=== PATIENT | male | born 1995 | race Caucasian/White ===

== ENCOUNTER 2019-06-29 17:30 | Inpatient (IN) ==
[2019-06-29] MEDS ORDERED: MoRPHine SULFATE 4 MG/ML 1 ML CARP\\VIAL IV STA (17:52)
[2019-06-29] MEDS ORDERED: ONDANSETRON INJ 2 MG/ML 2 ML VIAL IV STA (17:52)
[2019-06-29] MEDS ORDERED: SODIUM CHLORIDE 0.9% 1000ML 1,000 ML IV SCH ×2 (18:00→20:00)
[2019-06-29 18:46] LABS: iSTAT Hemoglobin 14.6 g/dl (14.0-18.0); iSTAT Ionized Calcium 1.19 mmol/l (1.12-1.32); iSTAT Potassium 3.3 mEq/L (3.3-5.0)
[2019-06-29 18:47] LABS: Basophils # (auto) 0.01 K/uL (0-0.2); Basophils % (auto) 0.1 %; Eosinophils # (auto) 0.01 K/uL (0-0.5); Eosinophils % (auto) 0.1 %; Hematocrit (blood only) 41.4 % (42-52); Hemoglobin 14.9 g/dL (14.0-18.0); Immature Granulocytes # (auto) 0.03 K/uL (0.00-0.02); Immature Granulocytes % (auto) 0.3 %; Lymphocytes # (auto) 0.52 K/uL (1.2-3.4); Lymphocytes % (auto) 4.6 %; Mean Corpuscular Hemoglobin 29.3 pg (25-34); Mean Corpuscular Volume 81.5 fL (80-100); Mean Platelet Volume 9.2 fL (7.4-10.4); Monocytes # (auto) 0.93 K/uL (0.11-0.59); Monocytes % (auto) 8.2 %; Neutrophils # (auto) 9.87 K/uL (1.4-6.5); Neutrophils % (auto) 86.7 %; Platelet Count 198 K/uL (130-400); RDW Coefficient of Variation 12.4 % (11.5-14.5); RDW Standard Deviation 37.3 fL (36.4-46.3); Red Blood Count 5.08 M/uL (4.7-6.1); White Blood Count 11.37 K/uL (4.8-10.8)
[2019-06-29 19:10] LABS: Albumin Level 4.2 gm/dl (3.4-5.0); BUN Creatinine Ratio 13.6 (10-20); Calcium 10.1 mg/dl (8.5-10.1); Creatinine Clr Calc Pharmacy 96.2 ml/min; Est GFR (African American) 101.6; Est GFR (Non-African American) 87.7; Potassium 3.4 mmol/L (3.5-5.1)
[2019-06-29 19:13] LABS: Bilirubin,Total 0.6 mg/dl (0.2-1); Globulin 4.3 gm/dl (2.5-4.0); Total Protein 8.5 gm/dl (6.4-8.2)
[2019-06-29] MEDS ORDERED: IOVERSOL 100ml IV PRN (19:33)
[2019-06-29] MEDS ORDERED: PIPERACILL/TAZOBAC CONSULT ACTIVE PRN (19:54)
[2019-06-29] MEDS ORDERED: MoRPHine SULFATE 2 MG/ML CARP IV STA (19:54)
[2019-06-29] MEDS ORDERED: PIPERACILLIN/TAZOBACTAM 4.5 GM/120 ML BAG IV ONE (19:54)
--- NOTE | 2019-06-29 19:59 | CT Scan Report ---
CT SCAN OF THE ABDOMEN AND PELVIS WITH IV CONTRAST CLINICAL HISTORY: Right lower quadrant abdominal pain. COMPARISON STUDY: No priors. TECHNIQUE: Following the IV administration of 97 cc of Optiray 320, CT scan of the abdomen and pelvi s is performed from the lung bases to the proximal femora. Images are reviewed in the axial, sagittal , and coronal planes. IV contrast was administered without complication. A dose lowering technique wa s utilized adhering to the principles of ALARA. CT DOSE: 356.29 mGycm FINDINGS: Lung bases: The heart is normal in size and without pericardial effusion. The lung bases are clear. Liver: The contrast-enhanced liver is normal in size, contour, and attenuation. There is no intrahepa tic biliary ductal dilatation. The hepatic veins and portal veins are patent. Gallbladder: Unremarkable. Spleen: Normal in size and attenuation. Pancreas: Unremarkable. Adrenal glands: Unremarkable. Kidneys: The contrast enhanced kidneys are normal in size and without hydronephrosis. The kidneys enh ance symmetrically. Abdominal vasculature: The abdominal aorta is normal in course and caliber. Bowel: There is no bowel obstruction. The appendix is distended and fluid-filled, measuring up to 1. 3 cm. The appendiceal wall is thickened and there is pericystic inflammation. The appearance is consi stent with acute appendicitis. This is best seen on image #[id number] where there is a calcified appendicoli th. No periappendiceal fluid collection is identified. Peritoneum: There is no intraperitoneal free air or abdominal ascites. Lymphadenopathy: None. Pelvic viscera: The bladder, prostate, and seminal vesicles are normal as imaged. There is trace free fluid in the pelvis. Skeletal structures: No lytic or blastic lesions are seen. IMPRESSION: 1. Findings are consistent with acute appendicitis. There is no evidence of abscess or perforation. 2. A small volume of free fluid in the cul-de-sac is nonspecific and likely on a reactive basis. Electronically signed by: Gamal Barbour M.D. 06/29/2019 7:58 PM
--- NOTE | 2019-06-29 20:01 | Emergency Department Note ---
History of Present Illness General Chief complaint: Abdominal Pain Stated complaint: ABD PAIN Time Seen by Provider: 06/29/19 17:45 History of Present Illness Maximum Pain Intensity: 6 This is an otherwise healthy 23-year-old male who presents to the emergency department via private vehicle with complaints of "right lower quadrant abdominal pain". The patient states that for the past few days he has been experiencing symptoms to consist of that of a head cold. He states that that pina s since resolved and then today he began with right lower quadrant abdominal pain. Initially was periumbilical and then moved to the right lower quadrant. It is worse with movement. He notes the pain is quite severe as a 7/10 at this time. He notes that his Fitbit has been reading his heart rate is been quite high up to 130s. Home Medications Home Medications Medication Instructions Recorded Confirmed Type RF-QG-cwdylu/FA-zeqmlc-dihnsno 2 cap PO UD PRN 06/29/19 06/29/19 History [Vicks DayQuil-NyQuil] atfqoul-ifbxgoxjfkckz-djiiiilv 1 - 2 tab PO Q6H PRN 06/29/19 06/29/19 History [Excedrin Migraine] oxymetazoline [Afrin 2 spray INTRANASAL Q12H PRN 06/29/19 06/29/19 History (oxymetazoline)] Allergies Allergy/AdvReac Type Severity Reaction Status Date / Time No Known Allergies Allergy Unverified 06/29/19 20:07 Past Med/Surg History Medical History No pertinent past medical history Surgical History No pertinent past surgical history Social History Feels Safe at Home: Yes Smoking Status: Never smoker Review of Systems A total of 10 systems reviewed and were otherwise negative Physical Exam Vital Signs Vital Signs - 24 hr 06/29/19 17:38 06/29/19 18:30 06/29/19 18:42 Temperature 37.1 C Temperature Source Oral Sepsis Recent Fever Within 48 Hours No Sepsis Action Taken by Nursing No Action Required Pulse Rate 149 H 127 H 124 H Pulse Rate from SpO2 Sensor 130 H 119 H Pulse Rhythm Regular Pulse Strength Normal Respiratory Rate 20 17 22 Respiratory Effort / Characteristics Non-Labored Spontaneous Respiratory Depth Normal Respiratory Pattern Regular Blood Pressure 130/70 144/81 H Blood Pressure Mean 90 102 Blood Pressure Position Sitting Pulse Oximetry 98 100 100 Oxygen Delivery Method Room Air 06/29/19 19:00 06/29/19 20:12 06/29/19 20:14 Temperature Temperature Source Sepsis Recent Fever Within 48 Hours Sepsis Action Taken by Nursing Pulse Rate 110 H 119 H 115 H Pulse Rate from SpO2 Sensor 112 H 118 H 116 H Pulse Rhythm Pulse Strength Respiratory Rate 20 17 22 Respiratory Effort / Characteristics Respiratory Depth Respiratory Pattern Blood Pressure 157/80 H 145/85 H Blood Pressure Mean 105 105 Blood Pressure Position Pulse Oximetry 100 99 98 Oxygen Delivery Method 06/29/19 20:30 06/29/19 21:00 06/29/19 21:01 Temperature Temperature Source Sepsis Recent Fever Within 48 Hours Sepsis Action Taken by Nursing Pulse Rate 113 H 112 H 112 H Pulse Rate from SpO2 Sensor 115 H 111 H 111 H Pulse Rhythm Pulse Strength Respiratory Rate 18 16 17 Respiratory Effort / Characteristics Respiratory Depth Respiratory Pattern Blood Pressure 137/82 138/82 Blood Pressure Mean 100 100 Blood Pressure Position Pulse Oximetry 100 99 99 Oxygen Delivery Method VITAL SIGNS - Vital signs and nursing notes were reviewed. Stable and afebrile. GENERAL -23-year-old male appearing his stated age who is in no acute distress but appears to be in pain and is guarding the right lower quadrant abdomen. Communicates well with provider and answers questions appropriately. SKIN - Without rashes. No meningeal or petechial rash. HEAD - NC/AT. EYES - Sclera anicteric. EARS - No deformities of external structures noted on gross examination bilaterally. NOSE - Midline and without cyanosis. No epistaxis or purulent drainage noted. MOUTH/OROPHARYNX - Without perioral cyanosis. NECK - Neck with FROM.No nuchal rigidity. LUNGS - Chest wall symmetric without accessory muscle use, intercostals retractions, or central cyanosis. Normal vesicular breath sounds CTA B/L. No wheezes, rales, or rhonchi appreciated. CARDIAC - RRR with S1/S2. No murmur, rubs, or gallops appreciated. ABDOMEN - Abdominal contour normal without pulsations or visible masses. BS normoactive all four quadrants. Exquisite right lower quadrant abdominal tenderness with guarding and rebound tenderness noted. EXTREMITIES - No clubbing or peripheral cyanosis. No pretibial edema present. +5/5 strength noted in UE/LE bilaterally. NEUROLOGIC - Cranial nerves II through XII grossly intact. Sensory intact to light touch throughout. PSYCH - A&O, and cooperates fully with examiner. Pt is very pleasant and interacts well with examiner. Course Administered Medications Ioversol (Optiray 320 100ml) 97 ml IV ONCE PRN PRN Reason: Interaction Checking Stop: 07/03/19 19:32 Last Admin: 06/29/19 19:33 Dose: 97 ml Documented by: [id number] Discontinued Medications Sodium Chloride (Nss 1000ml) 1,000 mls @ 999 mls/hr IV .Q1H1M JUSTA Stop: 06/29/19 19:00 Last Infusion: 06/29/19 19:51 Dose: 0 mls/hr Documented by: [id number] Admin: 06/29/19 18:37 Dose: 999 mls/hr Documented by: [id number] Sodium Chloride (Nss 1000ml) 1,000 mls @ 999 mls/hr IV .Q1H1M JUSTA Stop: 06/29/19 21:00 Last Infusion: 06/29/19 21:17 Dose: 0 mls/hr Documented by: [id number] Admin: 06/29/19 20:08 Dose: 999 mls/hr Documented by: [id number] Piperacillin Sod/Tazobactam Sod (Zosyn) 4.5 gm in 120 mls @ 240 mls/hr IV NOW ONE Stop: 06/29/19 20:23 Last Infusion: 06/29/19 20:38 Dose: 0 mls/hr Documented by: [id number] Admin: 06/29/19 20:07 Dose: 240 mls/hr Documented by: [id number] Morphine Sulfate (Morphine Sulfate) 4 mg IV NOW STA Stop: 06/29/19 17:53 Last Admin: 06/29/19 18:36 Dose: 4 mg Documented by: [id number] Morphine Sulfate (Morphine Sulfate) 2 mg IV NOW STA Stop: 06/29/19 19:55 Last Admin: 06/29/19 20:07 Dose: 2 mg Documented by: [id number] Ondansetron HCl (Zofran) 4 mg IV NOW STA Stop: 06/29/19 17:53 Last Admin: 06/29/19 18:37 Dose: 4 mg Documented by: [id number] Medical Decision Making Laboratory Data Result diagrams: 06/29/19 18:28 06/29/19 18:28 Lab Results 06/29/19 06/29/19 06/29/19 Range/Units 18:28 18:28 18:34 WBC 11.37 H (4.8-10.8) K/uL RBC 5.08 (4.7-6.1) M/uL Hgb 14.9 (14.0-18.0) g/dL POC Hgb 14.6 (14.0-18.0) g/dl Hct 41.4 L (42-52) % POC Hct 43 (42-52) % MCV 81.5 (80-100) fL MCH 29.3 (25-34) pg MCHC 36.0 (32-36) g/dL RDW Std Deviation 37.3 (36.4-46.3) fL RDW Coeff of Deep 12.4 (11.5-14.5) % Plt Count 198 (130-400) K/uL MPV 9.2 (7.4-10.4) fL Immature Gran % (Auto) 0.3 % Neut % (Auto) 86.7 % Lymph % (Auto) 4.6 % [place] % (Auto) 8.2 % Eos % (Auto) 0.1 % Baso % (Auto) 0.1 % Immature Gran # (Auto) 0.03 H (0.00-0.02) K/uL Neut # (Auto) 9.87 H (1.4-6.5) K/uL Lymph # (Auto) 0.52 L (1.2-3.4) K/uL [place] # (Auto) 0.93 H (0.11-0.59) K/uL Eos # (Auto) 0.01 (0-0.5) K/uL Baso # (Auto) 0.01 (0-0.2) K/uL POC Sodium 138 (135-144) mEq/L Sodium 136 (136-145) mmol/L POC Potassium 3.3 (3.3-5.0) mEq/L Potassium 3.4 L (3.5-5.1) mmol/L POC Chloride 104 (101-112) mEq/L Chloride 106 (98-107) mmol/L Carbon Dioxide 24 (21-32) mmol/L POC Total CO2 21 L (24-31) mEq/l Anion Gap 6.0 (3-11) POC Anion Gap 18.0 (16-25) mmol/L POC BUN 16 (7-18) mg/dl BUN 16 (7-18) mg/dl Creatinine 1.18 (0.6-1.4) mg/dl POC Creatinine 1.0 (0.6-1.3) mg/dl Est Cr Clr Drug Dosing 96.2 ml/min Est GFR ( Amer) 101.6 Est GFR (Non-Af Amer) 87.7 BUN/Creatinine Ratio 13.6 (10-20) Glucose 115 H (70-99) mg/dl POC Glucose (other) 116 H (70-99) mg/dl Calcium 10.1 (8.5-10.1) mg/dl POC Ioniz Calcium [place] 1.19 (1.12-1.32) mmol/l Total Bilirubin 0.6 (0.2-1) mg/dl AST 14 L (15-37) U/L ALT 32 (12-78) U/L Alkaline Phosphatase 63 (45-117) U/L Total Protein 8.5 H (6.4-8.2) gm/dl Albumin 4.2 (3.4-5.0) gm/dl Globulin 4.3 H (2.5-4.0) gm/dl Albumin/Globulin Ratio 1.0 (0.9-2) Lipase 90 (73-393) U/L Urine Color Urine Appearance (Clear) Urine pH (4.5-7.5) Ur Specific [place] (1.000-1.030) Urine Protein (Negative) Urine Glucose (UA) (Negative) Urine Ketones (Negative) Urine Blood (Negative) Urine Nitrite (Negative) Urine Bilirubin (Negative) Urine Urobilinogen (Negative) Ur Leukocyte Esterase (Negative) 06/29/19 Range/Units 19:50 WBC (4.8-10.8) K/uL RBC (4.7-6.1) M/uL Hgb (14.0-18.0) g/dL POC Hgb (14.0-18.0) g/dl Hct (42-52) % POC Hct (42-52) % MCV (80-100) fL MCH (25-34) pg MCHC (32-36) g/dL RDW Std Deviation (36.4-46.3) fL RDW Coeff of Deep (11.5-14.5) % Plt Count (130-400) K/uL MPV (7.4-10.4) fL Immature Gran % (Auto) % Neut % (Auto) % Lymph % (Auto) % [place] % (Auto) % Eos % (Auto) % Baso % (Auto) % Immature Gran # (Auto) (0.00-0.02) K/uL Neut # (Auto) (1.4-6.5) K/uL Lymph # (Auto) (1.2-3.4) K/uL [place] # (Auto) (0.11-0.59) K/uL Eos # (Auto) (0-0.5) K/uL Baso # (Auto) (0-0.2) K/uL POC Sodium (135-144) mEq/L Sodium (136-145) mmol/L POC Potassium (3.3-5.0) mEq/L Potassium (3.5-5.1) mmol/L POC Chloride (101-112) mEq/L Chloride (98-107) mmol/L Carbon Dioxide (21-32) mmol/L POC Total CO2 (24-31) mEq/l Anion Gap (3-11) POC Anion Gap (16-25) mmol/L POC BUN (7-18) mg/dl BUN (7-18) mg/dl Creatinine (0.6-1.4) mg/dl POC Creatinine (0.6-1.3) mg/dl Est Cr Clr Drug Dosing ml/min Est GFR ( Amer) Est GFR (Non-Af Amer) BUN/Creatinine Ratio (10-20) Glucose (70-99) mg/dl POC Glucose (other) (70-99) mg/dl Calcium (8.5-10.1) mg/dl POC Ioniz Calcium [place] (1.12-1.32) mmol/l Total Bilirubin (0.2-1) mg/dl AST (15-37) U/L ALT (12-78) U/L Alkaline Phosphatase (45-117) U/L Total Protein (6.4-8.2) gm/dl Albumin (3.4-5.0) gm/dl Globulin (2.5-4.0) gm/dl Albumin/Globulin Ratio (0.9-2) Lipase (73-393) U/L Urine Color Yellow Urine Appearance Clear (Clear) Urine pH >= 9.0 H (4.5-7.5) Ur Specific [place] 1.016 (1.000-1.030) Urine Protein Negative (Negative) Urine Glucose (UA) Negative (Negative) Urine Ketones Trace H (Negative) Urine Blood Negative (Negative) Urine Nitrite Negative (Negative) Urine Bilirubin Negative (Negative) Urine Urobilinogen Negative (Negative) Ur Leukocyte Esterase Negative (Negative) Imaging Data Radiologist's Impression: CT SCAN OF THE ABDOMEN AND PELVIS WITH IV CONTRAST CLINICAL HISTORY: Right lower quadrant abdominal pain. COMPARISON STUDY: No priors. TECHNIQUE: Following the IV administration of 97 cc of Optiray 320, CT scan of the abdomen and pelvis is performed from the lung bases to the proximal femora. Images are reviewed in the axial, sagittal, and coronal planes. IV contrast was administered without complication. A dose lowering technique was utilized adh ering to the principles of ALARA. CT DOSE: 356.29 mGycm FINDINGS: Lung bases: The heart is normal in size and without pericardial effusion. The lung bases are clear. Liver: The contrast-enhanced liver is normal in size, contour, and attenuation. There is no intrahepatic biliary ductal dilatation. The hepatic veins and portal veins are patent. Gallbladder: Unremarkable. Spleen: Normal in size and attenuation. Pancreas: Unremarkable. Adrenal glands: Unremarkable. Kidneys: The contrast enhanced kidneys are normal in size and without hydronephrosis. The kidneys enhance symmetrically. Abdominal vasculature: The abdominal aorta is normal in course and caliber. Bowel: There is no bowel obstruction. The appendix is distended and fluid- filled, measuring up to 1.3 cm. The appendiceal wall is thickened and there is pericystic inflammation. The appearance is consistent with acute appendicitis. This is best seen on image #[id number] where there is a calcified appendicolith. No periappendiceal fluid collection is identified. Peritoneum: There is no intraperitoneal free air or abdominal ascites. Lymphadenopathy: None. Pelvic viscera: The bladder, prostate, and seminal vesicles are normal as imaged. There is trace free fluid in the pelvis. Skeletal structures: No lytic or blastic lesions are seen. IMPRESSION: 1. Findings are consistent with acute appendicitis. There is no evidence of abscess or perforation. 2. A small volume of free fluid in the cul-de-sac is nonspecific and likely on a reactive basis. Electronically signed by: Gamal Barbour M.D. 06/29/2019 7:58 PM MDM Narrative Patient was seen and evaluated as above in room a 12. Review was performed of nursing notes and vital signs. After obtaining a thorough history and physical examination the above work up was performed. He presents to us today with right lower quadrant abdominal pain. His presentation is concerning for that of appendicitis. Labs were obtained. Results as above. There is minimal leukocytosis. No anemia. No emergent metabolic abnormality. Urinalysis reveals no evidence of infection. Fluids were ordered. Pain meds and antinausea meds also ordered. CT scan results as above. Acute appendicitis noted. Dr. Yang the general surgeon came to bedside. He will be taken to the operative suite for further evaluation and management. Please refer to further documentation regarding his stay. Dr. Yang recommended IV Zosyn. Per patient r agustin I did speak with his parents about the findings via phone and at bedside. In the evaluation and treatment of this patient, the following differential diagnoses were considered: ASC, VA, Pneumonia, GERD, Cholecystitis, Ascending Cholangitis, Cholydocholithiasis, acute appendicitis, bowel Obstruction, PE, Amongst Others. Impression & Plan Acute appendicitis Discharge Plan Visit Data *Final* Discharge Date/Time: 06/29/19 21:29 Chief Complaint: Abdominal Pain Stated Complaint: ABD PAIN ED Provider: Campbell Bolanos ED Midlevel Provider: Fermin Hussein Discharge Problem: Acute appendicitis Patient Disposition: Still a Patient Condition: Good Discharge Instructions Interventions: ED Discharge Assessment Last Done: 06/29/19 21:29
[2019-06-29 20:10] LABS: Appearance Urine Clear (Clear); Bilirubin Urine Negative (Negative); Blood Urine Negative (Negative); Color Urine Yellow; Glucose Urine UA Negative (Negative); Ketones Urine Trace (Negative); Leukocyte Esterase Urine Negative (Negative); Nitrite Urine Negative (Negative); Protein Urine Negative (Negative); Specific Gravity Urine 1.016 (1.000-1.030); Urobilinogen Urine Negative (Negative); pH Urine >= 9.0 (4.5-7.5)
--- NOTE | 2019-06-29 21:27 | History & Physical Report ---
Date of Service June 29, 2019 Assessment & Plan (1) Acute appendicitis: for laparoscopic appendectomy, possible open operation IV atbx History of Present Illness Primary Care Provider: NO PCP pt with acute appendicitis on CT scan RLQ pain Allergies Allergy/AdvReac Type Severity Reaction Status Date / Time No Known Allergies Allergy Unverified 06/29/19 20:07 Home Medications Home Medications Medication Instructions Recorded Confirmed Type ER-TO-rtnduz/HW-yxpsaz-vhrxnax 2 cap PO UD PRN 06/29/19 06/29/19 History [Vicks DayQuil-NyQuil] ganbdro-udvnznoiyrjgk-czkijykj 1 - 2 tab PO Q6H PRN 06/29/19 06/29/19 History [Excedrin Migraine] oxymetazoline [Afrin 2 spray INTRANASAL Q12H PRN 06/29/19 06/29/19 History (oxymetazoline)] Past Med/Surg History Social History Feels Safe at Home: Yes Smoking Status: Never smoker Review of Systems All systems reviewed & are unremarkable except as noted in HPI & below Physical Exam Physical Exam: no distress- abd soft- RLQ pain Constitutional: well developed and well nourished; no acute distress Eyes: + anicteric sclerae Respiratory: normal respiratory effort; no respiratory distress Cardiovascular: Rate/Rhythm: regular rate Gastrointestinal (Abdomen): Percussion/Palpation: abdomen soft Skin: no rashes, warm and dry Neurologic: awake Psychiatric: Orientation: alert Results & Data Vital Signs (Past 12 Hours) Vital Signs Temp Pulse Resp BP Pulse Ox 06/29/19 20:14 115 H 22 98 06/29/19 20:12 119 H 17 145/85 H 99 06/29/19 19:00 110 H 20 157/80 H 100 06/29/19 18:42 124 H 22 100 06/29/19 18:30 127 H 17 144/81 H 100 06/29/19 17:38 37.1 C 149 H 20 130/[address] scan
[2019-06-29] MEDS ORDERED: PROPOFOL IV EMULSION 10 MG/ML 20 ML VIAL IV ONE (21:57)
[2019-06-29] MEDS ORDERED: LIDOCAINE HCL 2% 2 ML VIAL/AMP(20MG/ML) INFIL ONE (21:58)
[2019-06-29] MEDS ORDERED: ROCURONIUM BROMIDE 10 MG/ML 5 ML VIAL ONE (21:58)
[2019-06-29] MEDS ORDERED: SUCCINYLCHOLINE CHLORIDE 20 MG/ML 10 ML VIAL ONE (21:58)
[2019-06-29] MEDS ORDERED: fentaNYL citrate 100 MCG/2 ML VIAL ONE ×2 (21:59→22:42)
[2019-06-29] MEDS ORDERED: MIDAZOLAM HCL 1 MG/ML 2ML VIAL ONE (22:00)
[2019-06-29] MEDS ORDERED: BUPIVACAINE 0.5 % 5 MG/1 ML MPF 30ML VIAL ONE (22:01)
--- NOTE | 2019-06-29 23:17 | Anesthesiology Consultation ---
Date of Service June 29, 2019 Assessment & Plan (1) Encounter for pre-operative examination: Chart Review Chart Review: Acceptable Risk for Surgery and Patient NOT seen in Pre Admission Testing Consults Requested none History Surgery Operation Date: 06/29/19 22:00 Proposed Procedures p Laparoscopic Appendectomy - Chidi Yang MD, FACS Height/Weight Height: 6 ft Weight: 68.7 kg Allergies Allergy/AdvReac Type Severity Reaction Status Date / Time No Known Allergies Allergy Unverified 06/29/19 20:07 Medications Home Medications Medication Instructions Recorded Confirmed Last Taken KG-UM-yjnmav/HV-enhtsu-njggtmc 2 cap PO UD PRN 06/29/19 06/29/19 Unknown [Vicks DayQuil-NyQuil] vwnixau-dgqafwmjibzbe-vorfvlzp 1 - 2 tab PO Q6H PRN 06/29/19 06/29/19 06/29/19 08:45 [Excedrin Migraine] oxymetazoline [Afrin 2 spray INTRANASAL Q12H PRN 06/29/19 06/29/19 06/28/19 (oxymetazoline)] Active Medications Generic Name Dose Route Start Last Admin Trade Name Freq PRN Reason Stop Dose Admin Ioversol 97 ml 06/29/19 19:33 06/29/19 19:33 Optiray 320 100ml IV 07/03/19 19:32 97 ml ONCE PRN Administration Interaction Checking NPO Date Last Intake of Fluids: 06/29/19 Time Last Intake of Fluids: 17:30 Last Intake of Fluids Comment: few sips of gatorade Date Last Intake of Solids: 06/29/19 Time Last Intake of Solids: 13:30 Last Intake of Solids Comment: cheese sandwich Past Medical History Medical History No pertinent past medical history Past Surgical History Surgical History No pertinent past surgical history Social History Smoking Status: Never smoker Physical Exam Vital Signs Last Vital Signs Temp 37.1 C 06/29/19 17:38 Pulse 112 H 06/29/19 21:01 Resp 17 06/29/19 21:01 BP 138/82 06/29/19 21:01 Pulse Ox 99 06/29/19 21:01 Testing Laboratory Results 06/29/19 18:28 06/29/19 18:28 Urine Color Yellow 06/29/19 19:50 Urine Appearance Clear (Clear) 06/29/19 19:50 Urine pH >= 9.0 (4.5-7.5) H 06/29/19 19:50 Ur Specific [place] 1.016 (1.000-1.030) 06/29/19 19:50 Urine Protein Negative (Negative) 06/29/19 19:50 Urine Glucose (UA) Negative (Negative) 06/29/19 19:50 Urine Ketones Trace (Negative) H 06/29/19 19:50 Urine Nitrite Negative (Negative) 06/29/19 19:50 Ur Leukocyte Esterase Negative (Negative) 06/29/19 19:50 06/29/19 18:34 POC Glucose (other) 116 H
[2019-06-29] MEDS ORDERED: ePHEDrine sulfate 50 MG/ML AMP IV PRN (23:19)
[2019-06-29] MEDS ORDERED: ATROPINE SULFATE 0.1 MG/ML 10ML SYR IV PRN (23:19)
[2019-06-29] MEDS ORDERED: GLYCOPYRROLATE 0.2 MG/ML VIAL ONE (23:19)
[2019-06-29] MEDS ORDERED: NEOSTIGMINE METHYLSULFATE 5 MG/5 ML SYR ONE (23:20)
--- NOTE | 2019-06-29 23:34 | Operative Report ---
Post Operative Report Pre & Post Diagnosis Operation Date: 06/29/19 22:00 Pre-Op Diagnosis: Acute appendicitis Post-Op Diagnosis: Acute appendicitis chronic adhesions, appendolith Procedure Operation Date: 06/29/19 22:00 Actual Procedures p Laparoscopic Appendectomy(Not Applicable) - Chidi Yang MD, FACS Surgeon Chidi Yang MD, FACS [employer] nurses Estimated Blood Loss 10 Findings Consistent with Post-Op Diagnosis Specimens appendix Description of Procedure see dictation I attest to the content of the Intraoperative Record and any orders documented therein. Any exceptions are noted below.
[2019-06-29] MEDS ORDERED: ACETAMINOPHEN 1,000 MG/100 ML VIAL IV ONE (23:44)
[2019-06-30] MEDS ORDERED: HYDROmorphone INJ 0.5 MG/0.5 ML SYR ONE (00:10)
[2019-06-30] MEDS: HYDROmorphone INJ 2 MG/ML SYR/VIAL IV PRN ×2 (00:11→00:16)
[2019-06-30] MEDS ORDERED: ACETAMINOPHEN 1000 MG/100 ML IV IV ONE (00:21)
--- NOTE | 2019-06-30 00:31 | Anesthesiology Progress Note ---
Date of Service June 30, 2019 Anesthesia Post Procedure Vital Signs Vital Signs: Temp Pulse Pulse Resp BP BP Pulse Ox 06/30/19 00:25 37.1 C 88 16 147/82 H 98 06/30/19 00:15 81 16 139/79 97 06/30/19 00:05 91 H 19 166/71 H 96 06/29/19 23:55 89 21 148/79 H 95 06/29/19 23:46 37.2 C 99 H 23 146/82 H 95 06/29/19 21:01 112 H 17 138/82 99 06/29/19 21:00 112 H 16 99 06/29/19 20:30 113 H 18 137/82 100 06/29/19 20:14 115 H 22 98 06/29/19 20:12 119 H 17 145/85 H 99 06/29/19 19:00 110 H 20 157/80 H 100 06/29/19 18:42 124 H 22 100 06/29/19 18:30 127 H 17 144/81 H 100 06/29/19 17:38 37.1 C 149 H 20 130/70 98 Pain Intensity Right Abdomen: Pain Intensity: 3 Lower Medial Abdomen: Pain Intensity: 2 Transfer of Care Handoff Completed per policy Notes Mental Status: alert / awake / arousable Patient Amnestic to Procedure: Yes Nausea / Vomiting: adequately controlled Pain: adequately controlled Airway Patency, RR, SpO2: stable & adequate BP & HR: stable & adequate Hydration State: stable & adequate Anesthetic Complications: no major complications apparent
[2019-06-30] MEDS ORDERED: IBUPROFEN 600 MG TAB PO PRN (01:02)
[2019-06-30] MEDS ORDERED: PROMETHAZINE HCL 12.5 MG in SODIUM CHLORIDE 0.9% 50 ML IV PRN (01:02)
[2019-06-30] MEDS ORDERED: SODIUM CHLORIDE 0.9% 1000ML 1,000 ML IV SCH (01:02)
[2019-06-30] MEDS ORDERED: PROMETHAZINE HCL 25 MG in SODIUM CHLORIDE 0.9% 50 ML IV PRN (01:02)
[2019-06-30] MEDS ORDERED: PIPERACILL/TAZOBAC CONSULT ACTIVE PRN (01:02)
[2019-06-30] MEDS ORDERED: ONDANSETRON INJ 2 MG/ML 2 ML VIAL IV PRN (01:02)
[2019-06-30] MEDS ORDERED: MoRPHine SULFATE 2 MG/ML CARP IV PRN ×2 (01:02)
[2019-06-30] MEDS: PIPERACILLIN/TAZOBACTAM 3.375 GM in DEXTROSE 5% 100 ML IV SCH ×3 (01:28→18:06)
[2019-06-30] MEDS ORDERED: SODIUM CHLORIDE 0.9% 1000ML 500 ML IV ONE (05:50)
--- NOTE | 2019-06-30 06:06 | Surgery Progress Note ---
Date of Service June 30, 2019 Assessment & Plan (1) Acute appendicitis: pt is awake , alert- vitals stable ur output 200- dark, was very tachy on admission will give Nss bolus and increase IV abd- soft, incisions intact cont current care Results & Data Vital Signs (Past 12 Hours) Vital Signs Temp Pulse Pulse Pulse Resp BP BP 06/30/19 03:45 36.6 C 90 15 119/56 L 06/30/19 01:48 36.7 C 100 H 16 123/55 L 06/30/19 01:15 36.9 C 99 H 16 127/61 06/30/19 00:45 37.2 C 95 H 16 134/57 L 06/30/19 00:35 37.1 C 88 16 138/80 06/30/19 00:25 37.1 C 88 16 147/82 H 06/30/19 00:15 81 16 139/79 06/30/19 00:05 91 H 19 166/71 H 06/29/19 23:55 89 21 148/79 H 06/29/19 23:46 37.2 C 99 H 23 146/82 H 06/29/19 21:01 112 H 17 138/82 06/29/19 21:00 112 H 16 06/29/19 20:30 113 H 18 137/82 06/29/19 20:14 115 H 22 06/29/19 20:12 119 H 17 145/85 H 06/29/19 19:00 110 H 20 157/80 H 06/29/19 18:42 124 H 22 06/29/19 18:30 127 H 17 144/81 H Pulse Ox 06/30/19 03:45 96 06/30/19 01:48 94 06/30/19 01:15 95 06/30/19 00:45 95 06/30/19 00:35 98 06/30/19 00:25 98 06/30/19 00:15 97 06/30/19 00:05 96 06/29/19 23:55 95 06/29/19 23:46 95 06/29/19 21:01 99 06/29/19 21:00 99 06/29/19 20:30 100 06/29/19 20:14 98 06/29/19 20:12 99 06/29/19 19:00 100 06/29/19 18:42 100 06/29/19 18:30 100 PG Care Time/CCT Total # of Minutes Spent Total Time Spent with Patient: Total time spent is greater than 50% in coordination of care (as documented) at patient's floor/unit and/or counseling patient:
[2019-06-30 06:17] LABS: Basophils # (auto) 0.01 K/uL (0-0.2); Basophils % (auto) 0.1 %; Eosinophils % (auto) 1.1 %; Hematocrit (blood only) 35.8 % (42-52); Hemoglobin 12.3 g/dL (14.0-18.0); Immature Granulocytes # (auto) 0.02 K/uL (0.00-0.02); Immature Granulocytes % (auto) 0.2 %; Lymphocytes # (auto) 1.35 K/uL (1.2-3.4); Lymphocytes % (auto) 14.6 %; Mean Corpuscular Hemoglobin 29.1 pg (25-34); Mean Corpuscular Hgb Conc 34.4 g/dL (32-36); Mean Corpuscular Volume 84.6 fL (80-100); Mean Platelet Volume 8.8 fL (7.4-10.4); Monocytes # (auto) 1.16 K/uL (0.11-0.59); Monocytes % (auto) 12.6 %; Neutrophils # (auto) 6.59 K/uL (1.4-6.5); Neutrophils % (auto) 71.4 %; Platelet Count 159 K/uL (130-400); RDW Coefficient of Variation 12.8 % (11.5-14.5); RDW Standard Deviation 39.1 fL (36.4-46.3); Red Blood Count 4.23 M/uL (4.7-6.1); White Blood Count 9.23 K/uL (4.8-10.8)
[2019-06-30] MEDS: D5NSS + 20MEQ KCL 20 MEQ/1,000 ML BAG IV SCH ×2 (06:35→13:19)
[2019-06-30 07:07] LABS: Albumin Globulin Ratio 0.8 (0.9-2); BUN Creatinine Ratio 12.2 (10-20); Bilirubin,Total 1.1 mg/dl (0.2-1); Calcium 7.9 mg/dl (8.5-10.1); Creatinine Clr Calc Pharmacy 115.1 ml/min; Est GFR (African American) 104.8; Est GFR (Non-African American) 90.5; Globulin 3.8 gm/dl (2.5-4.0); Phosphorus 3.9 mg/dl (2.5-4.9); Potassium 3.7 mmol/L (3.5-5.1); Total Protein 6.8 gm/dl (6.4-8.2)
[2019-06-30] MEDS: HYDROCODONE/ACETAMOPHEN 5/325MG TAB PO PRN ×4 (07:15→23:43)
--- NOTE | 2019-06-30 11:20 | Operative Report ---
DATE OF OPERATION: 06/29/2019 NAME OF OPERATION: Laparoscopic appendectomy. PREOPERATIVE DIAGNOSIS: Acute appendicitis. POSTOPERATIVE DIAGNOSIS: Acute appendicitis with chronic adhesions. STAFF SURGEON: Chidi Yang MD ANESTHESIA: General. DESCRIPTION OF PROCEDURE: The patient was brought in the operating room and placed on the operating table in supine position. His abdomen was then prepped and draped in usual fashion. A 0.5% plain Marcaine was used to anesthetize all incisions. Incision was made above the umbilicus, carrying dissection down, placing a Veress needle producing pneumoperitoneum, placing a 5-mm port. Under visualization, a second 5-mm port was placed suprapubically and a 12-mm port placed in the left lower quadrant. At this point, the appendix was somewhat retrocecal. It was covered by the ileum. It was very adherent to the retroperitoneum from chronic adhesions as the patient did have what appeared to be of an appendicolith on CAT scan. Gradually it was mobilized. The mesoappendix was transected using the Endo-CABRERA stapler. Then the base of the appendix was transected using the Endo-CABRERA stapler. The appendix was placed in an Endobag and then removed through the left lower quadrant port site. After the port site replaced, after appropriate irrigation and hemostasis, all ports were removed. The fascia in the left lower quadrant closed using 0 Vicryl suture and then the skin and all incisions were closed using subcuticular 4-0 Monocryl, Steri-Strips in the left lower quadrant, Dermabond in the other 2 sites. The patient was transferred to recovery room in stable condition. I attest to the content of the Intraoperative Record and any orders documented therein. Any exception s are noted below.
[2019-06-30] MEDS ORDERED: COUGH DROP (SUGAR FREE) LOZ 24 LOZ/1 BOX BUCCAL ONE (15:23)
[2019-07-01] MEDS: PIPERACILLIN/TAZOBACTAM 3.375 GM in DEXTROSE 5% 100 ML IV SCH (02:14)
[2019-07-01 08:08] LABS: Creatinine Clr Calc Pharmacy 140.8 ml/min; Est GFR (African American) 133.8; Est GFR (Non-African American) 115.4
[2019-07-01] MEDS: HYDROCODONE/ACETAMOPHEN 5/325MG TAB PO PRN (09:34)
--- NOTE | 2019-07-02 05:53 | Discharge Summary ---
PRINCIPAL DIAGNOSIS: Acute appendicitis. HISTORY OF PRESENT ILLNESS: The patient is a 23-year-old male presenting to the Emergency Room with acute abdominal pain and found to have acute appendicitis on imaging. He was taken to the operating room on 06/29/2019 where he underwent laparoscopic appendectomy. He has done well on IV antibiotics, progressing in diet and activity, feeling stable for discharge today on 07/01/2019 to be followed in the surgical clinic within 1-2 weeks.
== END 2019-07-01 10:14 | disposition home or self-care (01) | DRG 343 ==
LOC: ED 17:30 → OR 21:29 → 3W 23:56